=== PATIENT | male | born 1975 | race Caucasian/White ===

== ENCOUNTER → 2022-03-27 10:30 | Outpatient (BNVA) | payer MEDICAID, SELFPAY | PROVIDERS: Family Provider Internal Medicine; PCP Internal Medicine; Visit Provider Nurse Practitioner Family | DX: B19.20 Unspecified viral hepatitis C without hepatic coma (principal); F32.A Depression, unspecified; F41.9 Anxiety disorder, unspecified; N52.9 Male erectile dysfunction, unspecified; M54.2 Cervicalgia; G89.29 Other chronic pain; F19.11 Other psychoactive substance abuse, in remission; Z86.19 Personal history of other infectious and parasitic diseases; Z13.6 Encounter for screening for cardiovascular disorders; G47.00 Insomnia, unspecified | CPT/HCPCS: 80053; 80061; 82306; 82607; 84403; 84443; 85025; 86705; 86706; 86709; 86803; 87340; 87522; 87902; G0103 ==

== ENCOUNTER 2022-05-25 07:05 | Outpatient (CLI) | payer MEDICAID, SELFPAY ==
--- NOTE | 2022-05-25 07:45 | US_ITS ---
WS: [id number] RIGHT UPPER QUADRANT ULTRASOUND HISTORY: B19.20 - Unspecified viral hepatitis C without hepatic coma COMPARISON: None available. Liver: 13.5 cm in length. Normal size liver. No bile duct dilatation or mass. Portal Vein: Normal hepatopetal flow with monophasic waveform. Gallbladder: Normally distended gallbladder with no stones or wall thickening. CBD: 0.4 cm Pancreas: Normal size and echogenicity. Right kidney: 11.2 cm in length. Normal size and echogenicity. No hydronephrosis or mass. Aorta and IVC: Unremarkable abdominal aorta and IVC. No ascites. US/US liver [id number] IMPRESSION: Normal RIGHT upper quadrant ultrasound.
== END 2022-05-25 07:06 | disposition home or self-care (01) ==
LOC: RAD 07:09
PROVIDERS: PCP Internal Medicine; Visit Provider Nurse Practitioner Family
DX: B19.20 Unspecified viral hepatitis C without hepatic coma (principal); F32.A Depression, unspecified; F41.9 Anxiety disorder, unspecified
CPT/HCPCS: 76705

== ENCOUNTER → 2023-05-13 13:42 | Outpatient (BNVA) | payer MEDICAID, SELFPAY | PROVIDERS: PCP Internal Medicine; Visit Provider Nurse Practitioner Family | DX: G47.00 Insomnia, unspecified (principal); M54.2 Cervicalgia; G89.29 Other chronic pain; N52.9 Male erectile dysfunction, unspecified; F41.9 Anxiety disorder, unspecified; F32.A Depression, unspecified; M54.41 Lumbago with sciatica, right side; J30.2 Other seasonal allergic rhinitis | CPT/HCPCS: 80053 ==

== ENCOUNTER → 2023-07-22 16:10 | Outpatient (BNVA) | payer MEDICAID, SELFPAY | PROVIDERS: PCP Internal Medicine; Visit Provider Nurse Practitioner Family | DX: R30.0 Dysuria (principal) | CPT/HCPCS: 81000 ==

== ENCOUNTER 2023-08-09 06:05 | Outpatient (CLI) | payer MEDICAID, SELFPAY ==
--- NOTE | 2023-08-09 06:15 | US_ITS ---
WS: [id number] RIGHT UPPER QUADRANT ULTRASOUND HISTORY: screening COMPARISON: 05/25/2022 Liver: 11.0 cm in length. Normal size liver and echogenicity. No bile duct dilatation or mass. Portal Vein: Normal hepatopetal flow with monophasic waveform. Gallbladder: Normally distended gallbladder with no stones or wall thickening. CBD: 0.3 cm Pancreas: Normal size and echogenicity. Right kidney: 10.0 cm in length. Normal size and echogenicity. No hydronephrosis or mass. Aorta and IVC: Unremarkable abdominal aorta and IVC. No ascites. IMPRESSION: Normal right upper quadrant ultrasound.
== END 2023-08-09 06:06 | disposition home or self-care (01) ==
PROVIDERS: PCP Internal Medicine; Visit Provider Nurse Practitioner Family
DX: B19.20 Unspecified viral hepatitis C without hepatic coma (principal)
CPT/HCPCS: 76705; 80053; 84402; 84403; 85025; 86803; 87902

== ENCOUNTER → 2023-11-11 16:15 | Outpatient (BNVA) | payer MEDICAID, SELFPAY | PROVIDERS: PCP Internal Medicine; Visit Provider Nurse Practitioner Family | DX: B18.2 Chronic viral hepatitis C (principal); F41.9 Anxiety disorder, unspecified; F32.A Depression, unspecified; R53.83 Other fatigue; M54.9 Dorsalgia, unspecified; G89.29 Other chronic pain; M54.2 Cervicalgia; M54.41 Lumbago with sciatica, right side; J30.2 Other seasonal allergic rhinitis; G47.00 Insomnia, unspecified | CPT/HCPCS: 80053; 84402; 84403; 85025; 86705; 86706; 86709; 86803; 87340; 87902 ==

== ENCOUNTER → 2023-11-12 17:02 | Outpatient (BNVA) | payer MEDICAID, SELFPAY | PROVIDERS: PCP Internal Medicine; Visit Provider Nurse Practitioner Family | DX: B18.2 Chronic viral hepatitis C (principal); F41.9 Anxiety disorder, unspecified; F32.A Depression, unspecified; R53.83 Other fatigue; M54.9 Dorsalgia, unspecified; G89.29 Other chronic pain; M54.2 Cervicalgia; M54.41 Lumbago with sciatica, right side; J30.2 Other seasonal allergic rhinitis; G47.00 Insomnia, unspecified | CPT/HCPCS: 87522 ==